=== PATIENT | female | born 1970 | race Hispanic/Latino ===

== ENCOUNTER 2018-11-17 21:05 | Emergency (ER) | payer OTHER ==
[2018-11-17] MEDS ORDERED: GLUCAGON 1MG KIT 1 MG ML ONE (22:15)
== END 2018-11-17 23:03 | disposition home or self-care (01) ==
LOC: EDH 21:05
DX: R13.10 Dysphagia, unspecified (principal); R42 Dizziness and giddiness
CPT/HCPCS: 70360; 96374; 99284; J1610

== ENCOUNTER 2019-05-18 20:48 | Emergency (ER) | payer OTHER ==
[2019-05-18 21:45] LABS: RAPID GROUP A STREP NEGATIVE (NEGATIVE)
[2019-05-18] MEDS ORDERED: ASPIRIN 325 MG TABLET ONE (22:04)
[2019-05-18] MEDS ORDERED: NITROGLYCERIN 1GM/1 INCH PACKET TD ONE (22:04)
[2019-05-18 22:06] LABS: BASOPHILS % (AUTO) 0.5 % (0.0-5.0); EOSINOPHILS % (AUTO) 3.2 % (0.0-8.0); HEMATOCRIT 33.3 % (36-48); LYMPHOCYTES % (AUTO) 24.5 % (21.0-51.0); MEAN CORPUSCULAR HEMOGLOBIN 27.8 pg (27.0-33.0); MEAN CORPUSCULAR HGB CONC 31.8 g/dL (32.0-36.0); MEAN CORPUSCULAR VOLUME 87.4 fL (79-99); MONOCYTES % (AUTO) 8.9 % (3.0-13.0); NEUTROPHILS % (AUTO) 62.6 % (40.0-77.0); PLATELET COUNT (AUTO) 216 K/uL (130-400); RED BLOOD CELL COUNT(AUTO) 3.81 MIL/uL (4.00-5.50); RED CELL DISTRIBUTION WIDTH 15.1 % (11.0-15.5); WHITE BLOOD COUNT (AUTO) 6.2 K/uL (4.8-10.8)
[2019-05-18 22:36] LABS: CREATININE 0.9 mg/dL (0.5-1.5); POTASSIUM 3.8 mmol/L (3.5-5.1)
[2019-05-18 22:41] LABS: ALBUMIN 3.2 g/dL (3.5-5.0); BILIRUBIN,TOTAL 0.1 mg/dL (0.2-1.0); TOTAL PROTEIN, SERUM 9.1 g/dL (6.0-8.3)
== END 2019-05-19 01:21 | disposition home or self-care (01) ==
LOC: EDH 20:48
DX: J06.9 Acute upper respiratory infection, unspecified (principal)
CPT/HCPCS: 36415; 71046; 80053; 82550; 84484; 85025; 87804; 87880; 93005

== ENCOUNTER 2021-01-30 08:59 | Emergency (ER) | payer SELFPAY ==
[~2021-01-30] VITALS: Ht 152.4 cm; Wt 79.4 kg
[2021-01-30 09:33] LABS: BASOPHILS % (AUTO) 0.6 % (0.0-5.0); EOSINOPHILS % (AUTO) 2.6 % (0.0-8.0); HEMATOCRIT 28.6 % (36-48); LYMPHOCYTES % (AUTO) 25.1 % (21.0-51.0); MEAN CORPUSCULAR HEMOGLOBIN 28.5 pg (27.0-33.0); MEAN CORPUSCULAR HGB CONC 30.8 g/dL (32.0-36.0); MEAN CORPUSCULAR VOLUME 92.6 fL (79-99); MONOCYTES % (AUTO) 6.8 % (3.0-13.0); NEUTROPHILS % (AUTO) 64.7 % (40.0-77.0); PLATELET COUNT (AUTO) 255 K/uL (130-400); RED BLOOD CELL COUNT(AUTO) 3.09 MIL/uL (4.00-5.50); RED CELL DISTRIBUTION WIDTH 13.2 % (11.0-15.5); WHITE BLOOD COUNT (AUTO) 4.7 K/uL (4.8-10.8)
[2021-01-30] MEDS ORDERED: PHARMACY COMMUNICATION MISC SCH (11:30)
[2021-01-30] MEDS ORDERED: PROG100C11 PO (11:35)
[2021-01-30 12:07] VITALS: BP 126/78
== END 2021-01-30 12:13 | disposition home or self-care (01) ==
LOC: EDH 08:59
DX: D50.9 Iron deficiency anemia, unspecified (principal); N93.8 Other specified abnormal uterine and vaginal bleeding
CPT/HCPCS: 36415; 84703; 85025

== ENCOUNTER 2021-03-24 18:45 | Emergency (ER) | payer OTHER ==
[~2021-03-24] VITALS: Ht 157.5 cm; Wt 72.6 kg
[~2021-03-24 18:45] MED LIST: PROG100C11 PO
[2021-03-24 18:49] VITALS: BP 104/39
[2021-03-24] MEDS ORDERED: DIPHENHYDRAMINE HCL 25 MG CAPSULE PO ONE (21:00)
== END 2021-03-24 21:14 | disposition home or self-care (01) ==
LOC: EDH 18:45
DX: L25.9 Unspecified contact dermatitis, unspecified cause (principal)
CPT/HCPCS: 99282; Q0163

== ENCOUNTER 2021-09-09 21:14 | Emergency (ER) | payer OTHER ==
[~2021-09-09] VITALS: Ht 160 cm; Wt 72.1 kg
[2021-09-09] MEDS ORDERED: ONDANSETRON 4MG INJ IVP ONE (22:00)
[2021-09-09] MEDS ORDERED: MORPHINE 4 MG SYG IVP ONE (22:00)
[2021-09-09] MEDS ORDERED: 0.9%NACL 1000ML 1,000 ML IV ONE (22:00)
[2021-09-09 22:21] LABS: BASOPHILS % (AUTO) 0.4 % (0.0-5.0); EOSINOPHILS % (AUTO) 2.9 % (0.0-8.0); HEMATOCRIT 32.4 % (36-48); LYMPHOCYTES % (AUTO) 29.2 % (21.0-51.0); MEAN CORPUSCULAR HEMOGLOBIN 27.8 pg (27.0-33.0); MEAN CORPUSCULAR HGB CONC 31.8 g/dL (32.0-36.0); MEAN CORPUSCULAR VOLUME 87.6 fL (79-99); MONOCYTES % (AUTO) 9.4 % (3.0-13.0); NEUTROPHILS % (AUTO) 57.9 % (40.0-77.0); PLATELET COUNT (AUTO) 173 K/uL (130-400); WHITE BLOOD COUNT (AUTO) 5.5 K/uL (4.8-10.8)
[2021-09-09 22:24] LABS: APPEARANCE,URINE CLEAR (CLEAR); BILIRUBIN,URINE NEGATIVE (NEGATIVE); COLOR,URINE YELLOW (YELLOW); GLUCOSE, URINE (UA) NEGATIVE (NEGATIVE); KETONES,URINE NEGATIVE (NEGATIVE); LEUKOCYTE ESTERASE ,URINE NEGATIVE (NEGATIVE); NITRATE,URINE NEGATIVE (NEGATIVE); OCCULT BLOOD,URINE TRACE-INTACT (NEGATIVE); PROTEIN,URINE NEGATIVE (NEGATIVE); UROBILINOGEN,URINE 0.2 mg/dL (0.2-1.0)
[2021-09-09 22:29] LABS: HCG,QUALITATIVE URINE NEGATIVE (NEGATIVE)
[2021-09-09 22:40] LABS: CREATININE 0.8 mg/dL (0.5-1.5); POTASSIUM 3.5 mmol/L (3.5-5.1)
[2021-09-09 22:44] LABS: ALBUMIN 3.1 g/dL (3.5-5.0); TOTAL PROTEIN, SERUM 8.6 g/dL (6.0-8.3)
[2021-09-09 22:47] LABS: BACTERIA,URINE Few /HPF (None Seen); RBC,URINE 0-1 /HPF (0-1); SQUAMOUS EPITHELIAL CELL,UR Moderate /HPF (0-2); WBC,URINE 0-1 /HPF (0-1)
[2021-09-09 22:48] LABS: MUCUS,URINE Few LPF (None Seen)
[2021-09-09] MEDS ORDERED: IOHEXOL 350 MG/ML 100ML INFUS..BTL IV ONE (22:48)
[2021-09-09] MEDS ORDERED: LIDOCAINE HCL 2% VISCOUS 15 ML UDCUP PO ONE (23:00)
[2021-09-09] MEDS ORDERED: FAMOTIDINE 20MG VIAL IV ONE (23:00)
[2021-09-09] MEDS ORDERED: MAG/ALUM/SIMETH 30 ML UDCUP PO ONE (23:00)
[2021-09-09] MEDS ORDERED: OMEP20TA20 PO (23:38)
[2021-09-09] MEDS ORDERED: FAMO-136 PO (23:38)
[2021-09-09 23:40] VITALS: BP 141/73
== END 2021-09-09 23:47 | disposition home or self-care (01) ==
LOC: EDH 21:14
DX: K29.70 Gastritis, unspecified, without bleeding (principal); Z79.899 Other long term (current) drug therapy
CPT/HCPCS: 99285; 74177; 96374; 96375; 96361; 84484; 80053; 83690; 85025; 81001; 81025; 36415; 93005; J3490; J7030; J2405; J2270; Q9967

== ENCOUNTER 2021-09-25 21:19 | Emergency (ER) | payer OTHER ==
[~2021-09-25] VITALS: Ht 160 cm; Wt 73.0 kg
[~2021-09-25 21:19] MED LIST changes: +FAMO-136 PO; +OMEP20TA20 PO
[2021-09-25 21:48] VITALS: BP 135/70
[2021-09-25 21:48] LABS: BASOPHILS % (AUTO) 0.7 % (0.0-5.0); EOSINOPHILS % (AUTO) 4.1 % (0.0-8.0); HEMATOCRIT 33.4 % (36-48); LYMPHOCYTES % (AUTO) 30.5 % (21.0-51.0); MEAN CORPUSCULAR HEMOGLOBIN 28.4 pg (27.0-33.0); MEAN CORPUSCULAR HGB CONC 32.6 g/dL (32.0-36.0); MONOCYTES % (AUTO) 7.5 % (3.0-13.0); PLATELET COUNT (AUTO) 211 K/uL (130-400); RED BLOOD CELL COUNT(AUTO) 3.84 MIL/uL (4.00-5.50); WHITE BLOOD COUNT (AUTO) 5.6 K/uL (4.8-10.8)
[2021-09-25 21:50] LABS: APPEARANCE,URINE CLEAR (CLEAR); BILIRUBIN,URINE NEGATIVE (NEGATIVE); COLOR,URINE YELLOW (YELLOW); GLUCOSE, URINE (UA) NEGATIVE (NEGATIVE); KETONES,URINE NEGATIVE (NEGATIVE); LEUKOCYTE ESTERASE ,URINE NEGATIVE (NEGATIVE); NITRATE,URINE NEGATIVE (NEGATIVE); OCCULT BLOOD,URINE NEGATIVE (NEGATIVE); PROTEIN,URINE NEGATIVE (NEGATIVE); UROBILINOGEN,URINE 0.2 mg/dL (0.2-1.0)
[2021-09-25 21:56] LABS: CREATININE 0.8 mg/dL (0.5-1.5); HCG,QUALITATIVE URINE NEGATIVE (NEGATIVE); POTASSIUM 3.9 mmol/L (3.5-5.1)
[2021-09-25] MEDS ORDERED: FAMOTIDINE 20MG VIAL IV ONE (22:00)
[2021-09-25] MEDS ORDERED: 0.9%NACL 1000ML 1,000 ML IV ONE (22:00)
[2021-09-25] MEDS ORDERED: MORPHINE 4 MG SYG IVP ONE (22:00)
[2021-09-25] MEDS ORDERED: ONDANSETRON 4MG INJ IVP ONE (22:00)
[2021-09-25 22:01] LABS: ALBUMIN 3.4 g/dL (3.5-5.0); TOTAL PROTEIN, SERUM 9.3 g/dL (6.0-8.3)
[2021-09-25] MEDS ORDERED: LIDOCAINE HCL 2% VISCOUS 15 ML UDCUP PO ONE (23:30)
[2021-09-25] MEDS ORDERED: MAG/ALUM/SIMETH 30 ML UDCUP PO ONE (23:30)
== END 2021-09-26 00:56 | disposition home or self-care (01) ==
LOC: EDH 21:19
DX: K29.70 Gastritis, unspecified, without bleeding (principal); K59.00 Constipation, unspecified; Z79.899 Other long term (current) drug therapy; Z90.49 Acquired absence of other specified parts of digestive tract
CPT/HCPCS: 99285; 96374; 96375; 96361; 84484; 80053; 83690; 85025; 81003; 81025; 36415; 74018; 93005; J3490; J7030; J2405; J2270

== ENCOUNTER 2021-10-25 22:09 | Emergency (ER) | payer OTHER ==
[~2021-10-25] VITALS: Ht 160 cm; Wt 71.7 kg
[2021-10-25] MEDS ORDERED: ONDANSETRON 4MG INJ IVP ONE (22:30)
[2021-10-25] MEDS ORDERED: FAMOTIDINE 20MG VIAL IV ONE (22:30)
[2021-10-25 23:02] LABS: BASOPHILS % (AUTO) 0.4 % (0.0-5.0); EOSINOPHILS % (AUTO) 4.9 % (0.0-8.0); HEMATOCRIT 33.7 % (36-48); LYMPHOCYTES % (AUTO) 32.8 % (21.0-51.0); MEAN CORPUSCULAR HEMOGLOBIN 28.7 pg (27.0-33.0); MEAN CORPUSCULAR VOLUME 89.6 fL (79-99); MONOCYTES % (AUTO) 9.4 % (3.0-13.0); NEUTROPHILS % (AUTO) 52.3 % (40.0-77.0); PLATELET COUNT (AUTO) 173 K/uL (130-400); RED BLOOD CELL COUNT(AUTO) 3.76 MIL/uL (4.00-5.50); RED CELL DISTRIBUTION WIDTH 13.7 % (11.0-15.5); WHITE BLOOD COUNT (AUTO) 4.5 K/uL (4.8-10.8)
[2021-10-25 23:11] LABS: APPEARANCE,URINE CLEAR (CLEAR); BILIRUBIN,URINE NEGATIVE (NEGATIVE); COLOR,URINE YELLOW (YELLOW); GLUCOSE, URINE (UA) NEGATIVE (NEGATIVE); KETONES,URINE NEGATIVE (NEGATIVE); LEUKOCYTE ESTERASE ,URINE NEGATIVE (NEGATIVE); NITRATE,URINE NEGATIVE (NEGATIVE); OCCULT BLOOD,URINE NEGATIVE (NEGATIVE); PROTEIN,URINE NEGATIVE (NEGATIVE); UROBILINOGEN,URINE 0.2 mg/dL (0.2-1.0)
[2021-10-25 23:19] LABS: CREATININE 0.8 mg/dL (0.5-1.5); POTASSIUM 3.9 mmol/L (3.5-5.1)
[2021-10-25 23:28] LABS: ALBUMIN 3.3 g/dL (3.5-5.0); TOTAL PROTEIN, SERUM 8.8 g/dL (6.0-8.3)
[2021-10-25] MEDS ORDERED: SIMETHICONE 80 MG TAB.CHEW PO SCH (23:30)
[2021-10-25] MEDS ORDERED: HYOSCYAMINE SULFATE 0.125 MG TAB.SUBL SL SCH (23:30)
[2021-10-26] MEDS ORDERED: NITROGLYCERIN 0.4 MG SL TAB SL ONE (00:12)
[2021-10-26] MEDS ORDERED: DiphenhydrAMINE HCL 50 MG/ML VIAL ONE (00:12)
[2021-10-26] MEDS ORDERED: LORAZEPAM 1 MG TABLET ONE (00:13)
[2021-10-26] MEDS ORDERED: PANTOPRAZOLE 40 MG/VIAL ONE (00:56)
[2021-10-26] MEDS ORDERED: PANTOPRAZOLE 40 MG/VIAL IVP ONE (01:00)
[2021-10-26] MEDS ORDERED: FAMO-136 PO (03:09)
[2021-10-26] MEDS ORDERED: HYOS0.124 SL (03:09)
[2021-10-26] MEDS ORDERED: ONDA4TAB10 PO (03:09)
[2021-10-26] MEDS ORDERED: POLY17PO4 PO (03:09)
[2021-10-26 03:30] VITALS: BP 131/74
== END 2021-10-26 03:30 | disposition home or self-care (01) ==
LOC: EDH 22:09
DX: K59.09 Other constipation (principal); Z79.899 Other long term (current) drug therapy; Z90.49 Acquired absence of other specified parts of digestive tract
CPT/HCPCS: 99285; 96374; 96375 ×2; 84484; 80053; 83690; 85025; 81003; 36415; 74176; J3490; J2405; J1200; C9113

== ENCOUNTER 2021-11-30 10:14 | Emergency (ER) | payer OTHER ==
[~2021-11-30] VITALS: Ht 160 cm; Wt 67.6 kg
[~2021-11-30 10:14] MED LIST changes: +HYOS0.124 SL; +ONDA4TAB10 PO; +POLY17PO4 PO
[2021-11-30 10:15] VITALS: BP 126/70
[2021-11-30 10:51] LABS: BASOPHILS % (AUTO) 0.6 % (0.0-5.0); EOSINOPHILS % (AUTO) 0.9 % (0.0-8.0); HEMATOCRIT 35.5 % (36-48); LYMPHOCYTES % (AUTO) 15.5 % (21.0-51.0); MEAN CORPUSCULAR HEMOGLOBIN 28.3 pg (27.0-33.0); MEAN CORPUSCULAR HGB CONC 32.4 g/dL (32.0-36.0); MEAN CORPUSCULAR VOLUME 87.2 fL (79-99); MONOCYTES % (AUTO) 6.4 % (3.0-13.0); NEUTROPHILS % (AUTO) 76.3 % (40.0-77.0); PLATELET COUNT (AUTO) 198 K/uL (130-400); RED BLOOD CELL COUNT(AUTO) 4.07 MIL/uL (4.00-5.50); RED CELL DISTRIBUTION WIDTH 13.8 % (11.0-15.5); WHITE BLOOD COUNT (AUTO) 6.7 K/uL (4.8-10.8)
[2021-11-30 11:05] LABS: CREATININE 0.9 mg/dL (0.5-1.5); POTASSIUM 4.4 mmol/L (3.5-5.1)
[2021-11-30 11:09] LABS: ALBUMIN 3.6 g/dL (3.5-5.0); TOTAL PROTEIN, SERUM 9.5 g/dL (6.0-8.3)
[2021-11-30 11:11] LABS: APPEARANCE,URINE CLEAR (CLEAR); BILIRUBIN,URINE NEGATIVE (NEGATIVE); COLOR,URINE LIGHT-YELLOW (YELLOW); GLUCOSE, URINE (UA) NEGATIVE (NEGATIVE); KETONES,URINE NEGATIVE (NEGATIVE); LEUKOCYTE ESTERASE ,URINE NEGATIVE Leu/uL (NEGATIVE); NITRATE,URINE NEGATIVE (NEGATIVE); OCCULT BLOOD,URINE SMALL (NEGATIVE); PH,URINE 5.5 (5.0-8.0); PROTEIN,URINE 20 mg/dL (NEGATIVE); UROBILINOGEN,URINE 0.2 mg/dL (0.2-1.0)
[2021-11-30 11:18] LABS: BACTERIA,URINE RARE /HPF (None Seen); MUCUS,URINE RARE LPF (None Seen); SQUAMOUS EPITHELIAL CELL,UR FEW /HPF (0-2); WBC,URINE 0-1 /HPF (0-1)
[2021-11-30] MEDS ORDERED: IOHEXOL 350 MG/ML 100ML INFUS..BTL IV ONE (12:15)
== END 2021-11-30 14:18 | disposition home or self-care (01) ==
LOC: EDH 10:14
DX: S30.1XXA Contusion of abdominal wall, initial encounter (principal); Z90.49 Acquired absence of other specified parts of digestive tract; W01.0XXA Fall on same level from slipping, tripping and stumbling without subsequent striking against object, initial encounter; Y93.89 Activity, other specified; Y92.89 Other specified places as the place of occurrence of the external cause; Y99.8 Other external cause status
CPT/HCPCS: 99285; 74160; 80053; 83690; 85025; 81001; 36415; Q9967

== ENCOUNTER 2022-06-13 10:57 | Emergency (ER) | payer OTHER ==
[~2022-06-13] VITALS: Ht 149.9 cm; Wt 59.0 kg
[2022-06-13] MEDS ORDERED: GLUCAGON 1MG KIT 1 MG ML IM STA (12:01)
[2022-06-13] MEDS ORDERED: GLUCAGON 1MG KIT 1 MG ML ONE (12:04)
[2022-06-13] MEDS ORDERED: NIFEDIPINE 10 MG CAP PO ONE (12:30)
[2022-06-13 13:07] VITALS: BP 146/72
== END 2022-06-13 13:48 | disposition home or self-care (01) ==
LOC: EDH 10:57
DX: T17.298A Other foreign object in pharynx causing other injury, initial encounter (principal); Z79.899 Other long term (current) drug therapy; Z98.890 Other specified postprocedural states; X58.XXXA Exposure to other specified factors, initial encounter; Y93.89 Activity, other specified; Y92.89 Other specified places as the place of occurrence of the external cause; Y99.8 Other external cause status
CPT/HCPCS: 99284; 70490; 96372; J1610

== ENCOUNTER 2022-07-25 09:11 | Emergency (ER) | payer OTHER ==
[~2022-07-25] VITALS: Ht 152.4 cm; Wt 90.7 kg
[2022-07-25 09:13] VITALS: BP 135/75
== END 2022-07-25 13:28 | disposition left against medical advice (07) ==
LOC: EDH 09:11
DX: R51.9 Headache, unspecified (principal); Z20.822 Contact with and (suspected) exposure to COVID-19; Z53.21 Procedure and treatment not carried out due to patient leaving prior to being seen by health care provider
CPT/HCPCS: 99281; 87635; 87804 ×2; C9803

== ENCOUNTER 2022-12-20 11:52 | Emergency (ER) | payer OTHER ==
[~2022-12-20] VITALS: Ht 152.4 cm; Wt 60.8 kg
[2022-12-20 12:00] VITALS: BP 106/56; PULSE 63; RESP 16
[2022-12-20] MEDS ORDERED: KETOROLAC 30MG VIAL (30MG/ML) IM ONE (14:00)
== END 2022-12-20 16:35 | disposition home or self-care (01) ==
LOC: EDH 11:52
DX: S56.012A Strain of flexor muscle, fascia and tendon of left thumb at forearm level, initial encounter (principal); Z79.899 Other long term (current) drug therapy; Z90.49 Acquired absence of other specified parts of digestive tract; Z98.890 Other specified postprocedural states; W18.39XA Other fall on same level, initial encounter; Y93.89 Activity, other specified; Y92.89 Other specified places as the place of occurrence of the external cause; Y99.8 Other external cause status
CPT/HCPCS: 99284; 73100; 73140; 29125; 96372; J1885

== ENCOUNTER 2023-03-10 12:30 | Emergency (ER) | payer OTHER ==
[~2023-03-10] VITALS: Ht 152.4 cm; Wt 68.0 kg
[2023-03-10 13:43] LABS: BASOPHILS # (AUTO) 0.02 K/uL (0.00-0.20); BASOPHILS % (AUTO) 0.4 % (0.0-5.0); EOSINOPHILS # (AUTO) 0.08 K/uL (0.00-0.70); EOSINOPHILS % (AUTO) 1.6 % (0.0-8.0); HEMATOCRIT 32.6 % (36-48); IMMATURE GRANULOCYTE ABSOLUTE 0.01 K/uL (0-1); LYMPHOCYTES # (AUTO) 1.1 K/uL (1.0-4.8); LYMPHOCYTES % (AUTO) 21.8 % (21.0-51.0); MEAN CORPUSCULAR HEMOGLOBIN 28.4 pg (27.0-33.0); MEAN CORPUSCULAR HGB CONC 31.3 g/dL (32.0-36.0); MEAN CORPUSCULAR VOLUME 90.8 fL (79-99); MONOCYTES # (AUTO) 0.3 K/uL (0.1-1.0); MONOCYTES % (AUTO) 6.8 % (3.0-13.0); NEUTROPHILS # (AUTO) 3.5 K/uL (1.8-7.7); NEUTROPHILS % (AUTO) 69.2 % (40.0-77.0); PLATELET COUNT (AUTO) 171 K/uL (130-400); RED BLOOD CELL COUNT(AUTO) 3.59 MIL/uL (4.00-5.50); RED CELL DISTRIBUTION WIDTH 13.8 % (11.0-15.5)
[2023-03-10 13:51] LABS: CREATININE 0.9 mg/dL (0.5-1.5); POTASSIUM 4.4 mmol/L (3.5-5.1)
[2023-03-10 13:58] LABS: ALBUMIN 3.4 g/dL (3.5-5.0); BILIRUBIN,TOTAL 0.3 mg/dL (0.2-1.0); TOTAL PROTEIN, SERUM 8.3 g/dL (6.0-8.3)
[2023-03-10 15:16] VITALS: BP 122/81; PULSE 61; RESP 18; O2SAT 100
== END 2023-03-10 15:19 | disposition home or self-care (01) ==
LOC: EDH 12:30
DX: L24.5 Irritant contact dermatitis due to other chemical products (principal); Z79.899 Other long term (current) drug therapy; Z90.49 Acquired absence of other specified parts of digestive tract; Z98.890 Other specified postprocedural states
CPT/HCPCS: 36415; 73130; 80053; 85025

== ENCOUNTER 2023-04-09 03:38 | Emergency (ER) | payer OTHER ==
[~2023-04-09] VITALS: Ht 157.5 cm; Wt 67.6 kg
[2023-04-09] MEDS: KETOROLAC 30MG VIAL (30MG/ML) IVP ONE (04:59)
[2023-04-09] MEDS: DiphenhydrAMINE HCL 50 MG/ML VIAL IV ONE (04:59)
[2023-04-09] MEDS: METOCLOPRAMIDE 10 MG/2 ML VIAL IVP ONE (04:59)
[2023-04-09] MEDS: FLUORESCEIN SODIUM 1 STRIP STRIP OP SCH (06:09)
[2023-04-09] MEDS: TETRACAINE HCL 0.5% 4 ML OPHTH SOLN OP SCH (06:09)
[2023-04-09] MEDS ORDERED: NAPR-1180 PO (06:57)
[2023-04-09 07:18] VITALS: BP 123/66; PULSE 68; RESP 17; O2SAT 99
== END 2023-04-09 07:24 | disposition home or self-care (01) ==
LOC: EDH 03:38
DX: G43.909 Migraine, unspecified, not intractable, without status migrainosus (principal); Z79.899 Other long term (current) drug therapy
CPT/HCPCS: 99285; 96374; 70450; 96375; 81025; J1200; J1885; J2765

== ENCOUNTER 2024-08-24 19:29 | Emergency (ER) | payer SELFPAY ==
[~2024-08-24] VITALS: Ht 157.5 cm; Wt 70.3 kg
[~2024-08-24 19:29] MED LIST changes: +NAPR-1180 PO; +ONDA-243 PO; -ONDA4TAB10 PO
[2024-08-24 20:54] LABS: RAPID GROUP A STREP negative (NEGATIVE)
[2024-08-24 21:04] LABS: SARS-CoV-2, RNA, NAAT NEGATIVE SARS CoV-2 (NEGATIVE)
[2024-08-24 21:08] LABS: INFLUENZA TYPE A Negative For Type A (NEGATIVE); INFLUENZA TYPE B Negative For Type B (NEGATIVE)
[2024-08-24] MEDS ORDERED: LORA10TA7 PO (22:12)
[2024-08-24] MEDS ORDERED: AZIT250T9 PO (22:12)
[2024-08-24] MEDS ORDERED: METH4TAB3 PO (22:12)
--- NOTE | 2024-08-24 22:12 | ERN ---
General Chief Complaint: Sore Throat Stated Complaint: C/O COUGH, CONGESTION, SORE THROAT, RT EAR PAIN Time Seen by MD: 19:32 Time Seen by Midlevel: 19:32 Source: patient History of Present Illness Initial Comments Patient is a 53-year-old female presenting to the emergency department for evaluation of flu-like symptoms. Symptoms consist of nasal congestion, sore throat, and bilateral ear pain. Denies any sick contacts. Symptoms started earlier today. Allergies: Coded Allergies: No Known Drug Allergies (Unverified Allergy, Unknown, 05/19/19) Home Meds Active Scripts Naproxen (Naprosyn) 500 Mg Tablet, 500 MG PO BIDPC for 10 Days, #20 TAB 0 Refills Prov:PARAM ALMAGUER MD 04/09/23 Polyethylene Glycol 3350 (Miralax) 17 Gm Powd.pack, 17 GM PO DAILY, #30 PACKET 0 Refills Prov:ELAINE PASCUAL MD 10/26/21 Hyoscyamine Sulfate (Levsin-Sl) 0.125 Mg Tab.subl, 0.125 MG SL TID PRN for ABDOMINAL PAIN, #15 TAB.SL 0 Refills Prov:ELAINE PASCUAL MD 10/26/21 Ondansetron (Ondansetron Odt) 4 Mg Tab.rapdis, 4 MG PO TID PRN for NAUSEA, #15 TAB 0 Refills Prov:ELAINE PASCUAL MD 10/26/21 Famotidine (Pepcid) 20 Mg Tablet, 20 MG PO DAILY, #30 TAB 0 Refills Prov:ELAINE PASCUAL MD 10/26/21 Famotidine (Pepcid) 20 Mg Tablet, 20 MG PO DAILY, #30 TAB Prov:DONNA DIAZ 09/09/21 Omeprazole (Omeprazole) 20 Mg Tablet.dr, 20 MG PO DAILY, #30 TAB Prov:DONNA DIAZ 09/09/21 Progesterone,Micronized (Progesterone) 100 Mg Capsule, 10 MG PO BID for 10 Days, #20 CAP 0 Refills Prov:MARIEL DEAL MD 01/30/21 Past Medical History Past Medical History: No Pertinent History Past Surgical History: Cholecystectomy, Family History Family History: Negative Social History Social History: Negative, Lives with family, Other Female( History) History: Not Applicable ROS Dictation CONSTITUTIONAL: Negative except for HPI HEAD/FACE: Negative except for HPI EENT: Negative except for HPI RESPIRATORY: Negative except for HPI GASTROINTESTINAL/ABDOMINAL: Negative except for HPI GENITOURINARY: Negative except for HPI MUSCULOSKELETAL: Negative except for HPI INTEGUMENTARY: Negative except for HPI NEUROLOGICAL/PSYCH: Negative except for HPI HEMATOLOGIC/LYMPHATIC: Negative except for HPI All Systems Negative, Except as noted above. 13 point review of systems assessed and all negative except for above. Physical Exam Physical Exam Dictation Vital Signs reviewed General Appearance: Alert, oriented x 3, no acute distress, well developed, nourished. Head and Face: non-traumatic. Eyes: PERRL, pink conjunctivas, eyelid no trauma, anterior chamber with arcus senilis. Ears: Pinnas intact and no signs of trauma or erythema ear canals clear and no discharge TM no erythema Nose: No discharge, no bleeding. Oropharynx: Mouth normal, tongue pink, pharynx clear,no erythema, tonsils no exudates, no abscesses noted, mucous membrane moist Neck: Supple, non-tender, no thyromegaly, no masses, no JVD, no bruits Breast:Deferred Chest:No tenderness, no crepitus, no paradoxical movement, no retractions Lungs:Clear, well-ventilated, symmetric, no rales, no wheezing, no rhonchi, no stridor, good breath sounds bilaterally Heart: Regular rate, regular rhythm, no murmur, no gallops Vascular: no peripheral edema, Abdomen: Soft, positive bowel sounds, nondistended, no guarding, nontender, no rebound, no masses no hepatomegaly, no splenomegaly, no Duran's sign, no hernias. Rectal: Deferred Genital: Deferred Neurological: Normal speech, motor function intact, sensory function intact Musculoskeletal: Neck nontender, full range of motion, back nontender, full range of motion, Extremities: nontender, full range of motion Skin: Color pink, dry, no turgor, no rash, no lacerations, no abrasions, no contusions. Lymphatic: Deferred Results Laboratory and Microbiology Lab and Micro Result Laboratory Tests Test 08/24/24 19:32 Influenza Type A Antigen Negative For Type A Influenza Type B Antigen Negative For Type B SARS-CoV-2, RNA, NAAT NEGATIVE SARS CoV-2 Group A Streptococcus Rapid negative (NEGATIVE) Labs Reviewed?: Yes MDM MDM: Differential diagnosis: Viral syndrome, upper respiratory infection, strep There are no social concerns with this patient. Prescription drug management Prescriptions will include: Azithromycin, Medrol pack, loratadine Medical management and examination interpretation discussions were had by me with other qualified healthcare professionals as indicated for the patient's care. ED Course Orders Procedure Category Date Status Time Covid Rna Naat LAB 08/24/24 Complete 19:37 Influenza Type A & B, LAB 08/24/24 Complete Rapid 19:37 Rapid (Group A Strep) LAB 08/24/24 Complete 19:37 Acetaminophen 325 Tab PHA 08/24/24 Complete (Tylenol 325mg Tab 20:30 Ketorolac PHA 08/24/24 Complete Tromethamine 30mg/Ml 21:00 Dexamethasone 4mg/Ml PHA 08/24/24 Complete 1ml Vial (Dexametha 21:00 Oxymetazoline Hcl PHA 08/24/24 Complete [place] (Afrin) 22:00 Loratadine/Pseudophephedrine PHA 08/25/24 In Process (Claritin-D 09:00 Current Medications Medications (Trade) Dose Ordered Sig/Chris Route PRN Reason Start Time Stop Time Status Last Admin Dose Admin Acetaminophen (TYLenol 325MG TAB) 650 mg ONCE ONCE PO 08/24/24 20:30 08/24/24 20:31 DC 08/24/24 20:39 Dexamethasone Sodium Phosphate (dexaMETHasone 4MG/ML 1ML VIAL) 10 mg ONCE ONCE IM 08/24/24 21:00 08/24/24 21:01 DC 08/24/24 21:07 Ketorolac Tromethamine (toRADol) 30 mg ONCE ONCE IM 08/24/24 21:00 08/24/24 21:01 DC 08/24/24 21:08 Loratadine/ Pseudoephedrine Sulfate (CLARitin-D 12 HOUR TABLET) 1 each BID PO 08/25/24 09:00 09/24/24 08:59 Oxymetazoline HCl (AFrin) 1 sprays ONCE ONCE EN 08/24/24 22:00 08/24/24 22:06 DC Vital Signs Date Time Temp Pulse Resp B/P (MAP) Pulse Ox O2 Delivery O2 Flow Rate FiO2 08/24/24 19:30 99.1 84 20 139/80 99 Room Air DX & DISP Disposition: Discharge Departure Impression: Primary Impression: Upper respiratory infection Condition: Stable Scripts Loratadine (Loratadine) 10 Mg Tablet 1 TAB PO DAILY for allergy symptoms for 30 Days, #30 TAB 0 Refills Prov: KEIRY MOONEY 08/24/24 Methylprednisolone (Medrol) 4 Mg Tab.ds.pk 1 TAB PO AD for 6 Days, #21 TAB 0 Refills 6 on day 1 then reduce by one tablet daily until gone Prov: KEIRY MOONEY 08/24/24 Azithromycin (Azithromycin) 250 Mg Tablet 1 TAB PO AD for 5 Days, #6 TAB 0 Refills 2 the first day followed by 1 for days 2-5 Prov: KEIRY MOONEY 08/24/24 Referrals: SELF,REFERRAL (PCP) Time of Disposition: 22:11 I have reviewed the case, and I agree with, Diagnosis and Plan I performed the substantive portion of the visit. I have reviewed and personally made and approve the management plan that is documented in the note by myself or the ANDRESSA. I acknowledge for responsibility for the patient's management plan. KEIRY MOONEY Aug 24, 2024 22:12
[2024-08-24] MEDS: LORATAdine/pseudophEPHEDrine 5/120 MG 1 EACH TAB.SR.12H PO SCH (22:18)
[2024-08-24] MEDS: OXYmetazoline HCL SPRAY 100 SPRAYS/15 ML BOTTLE EN ONE (22:18)
[2024-08-24 22:31] VITALS: BP 135/79; PULSE 78; RESP 18; TEMP 98.5; O2SAT 98
[2024-08-25] MEDS ORDERED: LORATAdine/pseudophEPHEDrine 5/120 MG 1 EACH TAB.SR.12H PO SCH (09:00)
== END 2024-08-24 22:33 | disposition home or self-care (01) ==
LOC: EDH 19:29
DX: J06.9 Acute upper respiratory infection, unspecified (principal); Z79.890 Hormone replacement therapy; Z90.49 Acquired absence of other specified parts of digestive tract; Z20.822 Contact with and (suspected) exposure to COVID-19
CPT/HCPCS: 99284; 87635; 87880; 87804 ×2; 96372 ×2; J1100; J1885

== ENCOUNTER 2025-02-20 20:36 | Emergency (ER) | payer SELFPAY ==
[~2025-02-20] VITALS: Ht 157.5 cm; Wt 69.4 kg
[~2025-02-20 20:36] MED LIST changes: +AZIT250T9 PO; +LORA10TA7 PO; +METH4TAB3 PO
--- NOTE | 2025-02-20 20:46 | ERN ---
ED Note History of Present Illness Stated Complaint: C/O COUGH,SORE THROAT,HEADACHE, BODYACHES,CHILLS Chief Complaint: Cough Time Seen by MD: 20:40 Dictation: PATIENT IS A 54-YEAR-OLD FEMALE WITH FLU-LIKE SYMPTOMS TO INCLUDE A DRY COUGH, SORE THROAT WITH PAINFUL SWALLOWING FRONTAL HEADACHE FEVER AND BODY ACHES ONSET TODAY. SHE DENIES NAUSEA VOMITING NO DIARRHEA NO LOSS OF TASTE OR SMELL. NO PRIMARY CARE DOCTOR AND ALSO STATES SHE HAS TAKEN NOTHING TODAY PRIOR TO ARRIVAL FOR PAIN OR FEVER. Allergies: Coded Allergies: No Known Drug Allergies (Unverified Allergy, Unknown, 05/19/19) Home Meds Active Scripts Benzonatate (Tessalon Perles) 100 Mg Cap, 200 MG PO TID for cough, #60 CAP 0 Refills Prov:NOELLE FAIRCHILD [employer]BILE APPLICATION TESTER 02/20/25 Methylprednisolone (Medrol) 4 Mg Tab.ds.pk, 1 TAB PO AD for 6 Days, #21 TAB 0 Refills 6 on day 1 then reduce by one tablet daily until gone Prov:NOELLE FAIRCHILD MOBILE APPLICATION TESTER 02/20/25 Loratadine (Loratadine) 10 Mg Tablet, 1 TAB PO DAILY for allergy symptoms for 30 Days, #30 TAB 0 Refills Prov:KEIRY MOONEY PAC 08/24/24 Methylprednisolone (Medrol) 4 Mg Tab.ds.pk, 1 TAB PO AD for 6 Days, #21 TAB 0 Refills 6 on day 1 then reduce by one tablet daily until gone Prov:KEIRY MOONEY 08/24/24 Azithromycin (Azithromycin) 250 Mg Tablet, 1 TAB PO AD for 5 Days, #6 TAB 0 Refills 2 the first day followed by 1 for days 2-5 Prov:KEIRY MOONEY 08/24/24 Naproxen (Naprosyn) 500 Mg Tablet, 500 MG PO BIDPC for 10 Days, #20 TAB 0 Refills Prov:PARAM ALMAGUER MD 04/09/23 Polyethylene Glycol 3350 (Miralax) 17 Gm Powd.pack, 17 GM PO DAILY, #30 PACKET 0 Refills Prov:ELAINE PASCUAL MD 10/26/21 Hyoscyamine Sulfate (Levsin-Sl) 0.125 Mg Tab.subl, 0.125 MG SL TID PRN for ABDOMINAL PAIN, #15 TAB.SL 0 Refills Prov:ELAINE PASCUAL MD 10/26/21 Ondansetron (Ondansetron Odt) 4 Mg Tab.rapdis, 4 MG PO TID PRN for NAUSEA, #15 TAB 0 Refills Prov:ELAINE PASCUAL MD 10/26/21 Famotidine (Pepcid) 20 Mg Tablet, 20 MG PO DAILY, #30 TAB 0 Refills Prov:ELAINE PASCUAL MD 10/26/21 Famotidine (Pepcid) 20 Mg Tablet, 20 MG PO DAILY, #30 TAB Prov:JOEIDANIAGINA [facility] 09/09/21 Omeprazole (Omeprazole) 20 Mg Tablet.dr, 20 MG PO DAILY, #30 TAB Prov:FITTINGDNONA [facility] 09/09/21 Progesterone,Micronized (Progesterone) 100 Mg Capsule, 10 MG PO BID for 10 Days, #20 CAP 0 Refills Prov:MARIEL DEAL MD 01/30/21 Past Medical History Past Medical History: No Pertinent History Additional Past Medical Hx: DENIES PMHX Surgical History: None Family History: Negative Social History: Negative, Lives with family, Other History: Not Applicable RN Note Reviewed/Agreed w/PFSH: Yes Review of System Dictation MINIMAL ROS CONSTITUTIONAL: NEGATIVE EXCEPT FOR HPI FEVER CHILLS HEAD/FACE: NEGATIVE EXCEPT FOR HPI EENT: NEGATIVE EXCEPT FOR HPI CLEAR RHINITIS WITH FRONTAL HEADACHE AND SORE THROAT RESPIRATORY: NEGATIVE EXCEPT FOR HPI DRY COUGH GASTROINTESTINAL/ABDOMINAL: NEGATIVE EXCEPT FOR HPI GENITOURINARY: NEGATIVE EXCEPT FOR HPI MUSCULOSKELETAL: NEGATIVE EXCEPT FOR HPI INTEGUMENTARY: NEGATIVE EXCEPT FOR HPI NEUROLOGICAL/PSYCH: NEGATIVE EXCEPT FOR HPI HEMATOLOGIC/LYMPHATIC: NEGATIVE EXCEPT FOR HPI ALL SYSTEMS NEGATIVE, EXCEPT NOTED ABOVE. 13 POINT REVIEW OF SYSTEMS ASSESSED AND ALL NEGATIVE EXCEPT FOR ABOVE. Initial Vital Sign VS Vital Signs Date Time Temp Pulse Resp B/P (MAP) Pulse Ox O2 Delivery O2 Flow Rate FiO2 02/20/25 20:38 97.9 73 20 137/53 100 Room Air 02/20/25 21:33 0 21 Physical Exam Dictation VITAL SIGNS REVIEWED GENERAL APPEARANCE: ALERT, ORIENTED X 3, NO ACUTE DISTRESS, WELL DEVELOPED, NOURISHED. HEAD AND FACE: NON-TRAUMATIC. EYES: PERRL, PINK CONJUNCTIVAS, EYELID NO TRAUMA, ANTERIOR CHAMBER WITH ARCUS SENILIS. EARS: PINNAS INTACT AND NO SIGNS OF TRAUMA OR ERYTHEMA EAR CANALS CLEAR AND NO DISCHARGE TM NO ERYTHEMA NOSE: CLEAR DISCHARGE, NO BLEEDING. OROPHARYNX: MOUTH NORMAL, TONGUE PINK, PHARYNX CLEAR,N MILD PHARYNGEAL ERYTHEMA, TONSILS NO EXUDATES, NO ABSCESSES NOTED, MUCOUS MEMBRANE MOIST NECK: SUPPLE, NON-TENDER, NO THYROMEGALY, NO MASSES, NO JVD, NO BRUITS BREAST:DEFERRED CHEST:NO TENDERNESS, NO CREPITUS, NO PARADOXICAL MOVEMENT, NO RETRACTIONS LUNGS:CLEAR, WELL-VENTILATED, SYMMETRIC, NO RALES, NO WHEEZING, NO RHONCHI, NO STRIDOR, GOOD BREATH SOUNDS BILATERALLY HEART: REGULAR RATE, REGULAR RHYTHM, NO MURMUR, NO GALLOPS VASCULAR: NO PERIPHERAL EDEMA, ABDOMEN: SOFT, POSITIVE BOWEL SOUNDS, NONDISTENDED, NO GUARDING, NONTENDER, NO REBOUND, NO MASSES NO HEPATOMEGALY, NO SPLENOMEGALY, NO KELLEY'S SIGN, NO HERNIAS. RECTAL: DEFERRED GENITAL: DEFERRED NEUROLOGICAL: NORMAL SPEECH, MOTOR FUNCTION INTACT, SENSORY FUNCTION INTACT MUSCULOSKELETAL: NECK NONTENDER, FULL RANGE OF MOTION, BACK NONTENDER, FULL RANGE OF MOTION, EXTREMITIES: NONTENDER, FULL RANGE OF MOTION SKIN: COLOR PINK, DRY, NO TURGOR, NO RASH, NO LACERATIONS, NO ABRASIONS, NO CONTUSIONS. LYMPHATIC: DEFERRED Results (Laboratory/Radiology) Laboratory/Radiology Laboratory Tests Test 02/20/25 20:40 Influenza Type A Antigen Negative For Type A Influenza Type B Antigen Negative For Type B SARS-CoV-2, RNA, NAAT NEGATIVE SARS CoV-2 Group A Streptococcus Rapid negative (NEGATIVE) Labs Reviewed?: Yes ED Course ED Course Orders Procedure Category Date Status Time Rapid (Group A Strep) LAB 02/20/25 Complete 20:43 Influenza Type A & B, LAB 02/20/25 Complete Rapid 20:43 Ibuprofen 800 Mg Tab PHA 02/20/25 Complete (Motrin) 21:00 Covid Rna Naat LAB 02/20/25 Complete 20:43 Benzonatate 100 Mg PHA 02/20/25 Complete Capsule (Tessalon 100 22:00 Current Medications Medications (Trade) Dose Ordered Sig/Chris Route PRN Reason Start Time Stop Time Status Last Admin Dose Admin Benzonatate (Tessalon 100mg Caps) 200 mg ONCE ONCE PO 02/20/25 22:00 02/20/25 21:40 DC 02/20/25 21:39 Ibuprofen (moTRIN) 800 mg ONCE ONCE PO 02/20/25 21:00 02/20/25 21:01 DC 02/20/25 21:04 Vital Signs Date Time Temp Pulse Resp B/P (MAP) Pulse Ox O2 Delivery O2 Flow Rate FiO2 02/20/25 21:33 98.2 78 18 136/78 98 Room Air* 0 21 02/20/25 20:38 97.9 73 20 137/53 100 Room Air 2120/SWABS FOR FLU COVID AND STREP NEGATIVE. PATIENT IS AFEBRILE SHE WILL BE TREATED FOR URI WITH COUGH Medical Decision Making MDM MEDICAL DISCHARGE MAKING BASED ON SWABS FOR FLU COVID AND STREP. ALL SWABS NEGATIVE. PATIENT DISCHARGED HOME WITH VIRAL URI WITH COUGH PRESCRIBED MEDROL DOSEPAK AND TESSALON GIVEN A LIST OF PRIMARY CARE DOCTORS FOLLOW UP IN THE NEXT 1-2 DAYS DX & DISP Disposition: Discharge Departure Impression: Primary Impression: Viral URI with cough Condition: Stable Scripts Benzonatate (Tessalon Perles) 100 Mg Cap 200 MG PO TID for cough, #60 CAP 0 Refills Prov: NOELLE FAIRCHILD 02/20/25 Methylprednisolone (Medrol) 4 Mg Tab.ds.pk 1 TAB PO AD for 6 Days, #21 TAB 0 Refills 6 on day 1 then reduce by one tablet daily until gone Prov: NOELLE FAIRCHILD 02/20/25 Additional Instructions: FOLLOW-UP WITH PRIMARY CARE PROVIDER IN 1 TO 2 DAYS. TAKE MEDICATIONS DIRECTED HERE IN THE EMERGENCY ROOM. OKAY TO CONTINUE HOME MEDICATIONS UNLESS OTHERWISE DISCUSSED DURING YOUR VISIT IN THE EMERGENCY ROOM TODAY. RETURN TO YOUR NEAREST EMERGENCY ROOM IF SYMPTOMS WORSEN OR IF THERE IS NO IMPROVEMENT. CALL 911 IF YOU NEED IMMEDIATE ASSISTANCE. TAKE TYLENOL OR MOTRIN [id number] NEEDED AND IF NO CONTRAINDICATIONS ARE PRESENT. INCREASE ORAL HYDRATION. A WOUND CULTURE OR URINE CULTURE WAS ORDERED HERE IN THE EMERG ENCY ROOM DEPARTMENT PLEASE FOLLOW-UP WITH PRIMARY CARE PROVIDER AND ADVISE THEM TO GET REPEAT PORTS FROM OUR FACILITY. IF YOU HAD ANY KALYAN WRAP/SPLINTS THAT WERE APPLIED HERE, PLEASE DO NOT REMOVE THEM UNTIL YOU SEE YOUR PRIMARY CARE OR SPECIALTY. TAKE MEDROL DOSEPAK DIRECTED UNTIL GONE. TAKE TESSALON PERLES NEEDED FOR COUGH. INCREASE YOUR WATER INTAKE. SEE YOUR PRIMARY CARE DOCTOR FOR FOLLOW UP Referrals: SELF,REFERRAL (PCP) Time of Disposition: 21:22 I have reviewed the case, and I agree with, Diagnosis and Plan I performed a substantive portion of the visit. I have reviewed and personally made and approve the management plan that is documented in the notes by myself with ANDRESSA/resident. I acknowledged full responsibility for the patient's management plan. NOELLE FAIRCHILDP Feb 20, 2025 20:46 KJ OKEEFE DO Feb 21, 2025 03:22
[2025-02-20 21:01] LABS: RAPID GROUP A STREP negative (NEGATIVE)
[2025-02-20 21:15] LABS: SARS-CoV-2, RNA, NAAT NEGATIVE SARS CoV-2 (NEGATIVE)
[2025-02-20 21:16] LABS: INFLUENZA TYPE A Negative For Type A (NEGATIVE); INFLUENZA TYPE B Negative For Type B (NEGATIVE)
[2025-02-20] MEDS ORDERED: METH4TAB3 PO (21:24)
[2025-02-20] MEDS ORDERED: BENZ-39 PO (21:24)
[2025-02-20 21:33] VITALS: BP 136/78; PULSE 78; RESP 18; TEMP 98.3; O2SAT 98
[2025-02-20] MEDS: BENZONATATE 100 MG CAPSULE PO ONE (21:39)
== END 2025-02-20 21:40 | disposition home or self-care (01) ==
LOC: EDH 20:36
DX: J06.9 Acute upper respiratory infection, unspecified (principal); Z79.899 Other long term (current) drug therapy; Z79.890 Hormone replacement therapy; Z20.822 Contact with and (suspected) exposure to COVID-19
CPT/HCPCS: 87635; 87804; 87880; 99283